=== PATIENT | female | born 1930 | race Caucasian/White ===

== ENCOUNTER 2018-03-26 23:13 | Inpatient (IN) | payer MEDICARE, OTHER ==
[2018-03-26] MEDS: SOD CHLORIDE 0.9% 500 ML IV (23:43)
[2018-03-27 00:50] LABS: ADD UMIC YES; UR ASCORBIC ACID NEGATIVE (NEGATIVE); UR BACTERIA MANY /HPF (NONE SEEN); UR BILIRUBIN (Dip) NEGATIVE (NEGATIVE); UR BLOOD (Dip) 1+ mg/dL (NEGATIVE); UR CLARITY CLOUDY (CLEAR); UR COLOR YELLOW (YELLOW); UR GLUCOSE (Dip) NEGATIVE (NEGATIVE); UR KETONES (Dip) NEGATIVE (NEGATIVE); UR LEUKOCYTE ESTERASE (Dip) 3+ Leu/ul (NEGATIVE); UR NITRITE (Dip) NEGATIVE (NEGATIVE); UR RBC 4 /HPF (0-5); UR SPECIFIC GRAVITY (Dip) 1.012 (1.003-1.030); UR SQUAMOUS EPITHELIAL CELL FEW /HPF (FEW); UR TOTAL PROTEIN (Dip) NEGATIVE (NEGATIVE); UR UROBILINOGEN (Dip) NEGATIVE (NEGATIVE); UR WBC 118 /HPF (0-5)
[2018-03-27] MEDS: CEFTRIAXONE 1 GM/50 ML (PMX) 50 ML IVPB ×2 (00:52→08:41)
[2018-03-27 00:54] LABS: AADO2 Arterial 24.6 mmHg (7.0-24.0); Allen Test ACCEPTAB; Arterial Base Excess 4.6 mmol/L (-3.0-3); Arterial Blood Gas Oxygen Sat 98.5 mmHG (95.0-100.0); Arterial COHb 0.6 % (0.0-3.0); Arterial Fraction of Oxyhgb 97.7 % (93.0-99.0); Arterial HCO3 29.8 mmol/L (22.0-26.0); Arterial MetHb 0.2 % (0.0-1.5); Arterial Total Hemglobin 12.6 g/dl (12.0-18.0); Arterial pCO2 46.9 mmhg (35-45); MODE NASAL CANNULA; Site Right Radial
[2018-03-27 00:55] LABS: ADD MAN DIFF? NO
[2018-03-27 01:01] LABS: WHITE BLOOD COUNT 6.5 10^3/ul (4.8-10.8)
[2018-03-27 01:01] LABS: ABNORMAL IP MESSAGE 1; BASOPHILS % 0.3 % (0.0-2.0); EOSINOPHILS # 0.3 10^3/ul (0.0-0.5); EOSINOPHILS % 4.3 % (0.0-7.0); HEMATOCRIT 38.1 % (37.0-47.0); LYMPHOCYTES # 0.6 10^3/ul (0.8-2.9); LYMPHOCYTES % 8.6 % (15.0-51.0); MEAN CORPUSCULAR HEMOGLOBIN 30.7 pg (29.0-33.0); MEAN CORPUSCULAR HGB CONC 31.5 g/dl (32.0-37.0); MEAN CORPUSCULAR VOLUME 97.4 fl (82.0-101.0); MEAN PLATELET VOLUME 10.6 fl (7.4-10.4); MONOCYTE # 0.9 10^3/ul (0.3-0.9); MONOCYTES % 13.3 % (0.0-11.0); NEUTROPHIL # 4.7 10^3/ul (1.6-7.5); NEUTROPHILS % 73.2 % (39.0-77.0); PLATELET COUNT 223 10^3/UL (140-415); RED BLOOD COUNT 3.91 10^6/ul (4.20-5.40); RED CELL DISTRIBUTION WIDTH 15.6 % (11.5-14.5)
[2018-03-27 01:03] LABS: POSITIVE DIFF @See below
[2018-03-27 01:20] LABS: INR 1.35; PROTIME 16.9 Sec (11.9-14.9); PT RATIO 1.3
[2018-03-27 01:28] LABS: ALANINE AMINOTRANSFERASE 23 IU/L (13-69); ALBUMIN 3.5 g/dl (3.3-4.9); ALBUMIN/GLOBULIN RATIO 1.16; ALKALINE PHOSPHATASE 53 IU/L (42-121); ANION GAP 11 (8-16); ASPARTATE AMINO TRANSFERASE 26 IU/L (15-46); BILIRUBIN,INDIRECT 0.3 mg/dl (0-1.1); BILIRUBIN,TOTAL 0.3 mg/dl (0.2-1.3); BLOOD UREA NITROGEN 44 mg/dl (7-20); CARBON DIOXIDE 35 mmol/L (21-31); CHLORIDE 98 mmol/L (97-110); CREATININE 1.15 mg/dl (0.44-1.00); GLUCOSE 81 mg/dl (70-220); LIPASE 54 U/L (23-300); POTASSIUM 4.9 mmol/L (3.5-5.1); SODIUM 139 mmol/L (135-144); TOTAL PROTEIN 6.5 g/dl (6.1-8.1)
[2018-03-27 01:38] LABS: B-TYPE NATRIURETIC PEPTIDE 1800 PG/ML (0-450)
[2018-03-27] MEDS: KETOROLAC 15 MG INJ IV (01:47)
[2018-03-27] MEDS ORDERED: LORAZEPAM 2 MG INJ IV (02:30)
[2018-03-27] MEDS: FUROSEMIDE 40 MG INJ IV (03:25)
[2018-03-27] MEDS ORDERED: ONDANSETRON 4 MG INJ IV ×2 (07:00→09:00)
[2018-03-27 07:45] LABS: ADD MAN DIFF? NO
[2018-03-27 07:49] LABS: BASOPHILS % 0.4 % (0.0-2.0); EOSINOPHILS # 0.3 10^3/ul (0.0-0.5); EOSINOPHILS % 5.5 % (0.0-7.0); HEMATOCRIT 33.7 % (37.0-47.0); HEMOGLOBIN 10.8 g/dl (12.0-16.0); LYMPHOCYTES # 0.7 10^3/ul (0.8-2.9); LYMPHOCYTES % 13.1 % (15.0-51.0); MEAN CORPUSCULAR VOLUME 96.8 fl (82.0-101.0); MEAN PLATELET VOLUME 10.4 fl (7.4-10.4); MONOCYTE # 0.8 10^3/ul (0.3-0.9); MONOCYTES % 15.6 % (0.0-11.0); NEUTROPHIL # 3.2 10^3/ul (1.6-7.5); NEUTROPHILS % 65.2 % (39.0-77.0); PLATELET COUNT 187 10^3/UL (140-415); RED BLOOD COUNT 3.48 10^6/ul (4.20-5.40); RED CELL DISTRIBUTION WIDTH 15.7 % (11.5-14.5)
[2018-03-27 08:13] LABS: ALANINE AMINOTRANSFERASE 26 IU/L (13-69); ALBUMIN/GLOBULIN RATIO 1.15; ALKALINE PHOSPHATASE 53 IU/L (42-121); ANION GAP 9 (8-16); ASPARTATE AMINO TRANSFERASE 22 IU/L (15-46); BILIRUBIN,INDIRECT 0.2 mg/dl (0-1.1); BILIRUBIN,TOTAL 0.2 mg/dl (0.2-1.3); BLOOD UREA NITROGEN 44 mg/dl (7-20); CALCIUM 8.7 mg/dl (8.4-10.2); CARBON DIOXIDE 35 mmol/L (21-31); CHLORIDE 100 mmol/L (97-110); CREATININE 1.13 mg/dl (0.44-1.00); GLUCOSE 88 mg/dl (70-220); MAGNESIUM 2.5 mg/dl (1.7-2.5); PHOSPHORUS 4.5 mg/dl (2.5-4.9); POTASSIUM 4.4 mmol/L (3.5-5.1); SODIUM 140 mmol/L (135-144); TOTAL PROTEIN 5.6 g/dl (6.1-8.1)
[2018-03-27] MEDS ORDERED: NACL 0.9% 3 ML SYG IV (09:00)
[2018-03-27] MEDS ORDERED: TRIMETHOPRIM/SULFAMETHOX (DS) TAB PO (09:30)
[2018-03-27] MEDS: FAMOTIDINE 20 MG TAB PO ×2 (11:07→20:28)
[2018-03-27] MEDS: HEPARIN 5,000 UNIT/0.5 ML VIAL SC ×2 (11:09→20:27)
[2018-03-27] MEDS: ALBUMIN HUMAN 25% 100 ML IV ×2 (11:15→12:36)
[2018-03-27] MEDS ORDERED: VANCOMYCIN IV PER PHARMACY XX (11:30)
[2018-03-27] MEDS ORDERED: MEROPENEM 1 GM/50ML(PMX) 50 ML IVPB (11:30)
[2018-03-27] MEDS: MEROPENEM 1 GM/50ML(PMX) 50 ML IVPB ×2 (14:16→20:28)
[2018-03-27] MEDS: VANCOMYCIN 1.5 GM in SOD CHLORIDE 0.9% 250 ML IVPB (15:14)
[2018-03-27] MEDS ORDERED: FUROSEMIDE 20 MG INJ IV (18:00)
[2018-03-28 05:20] LABS: ADD MAN DIFF? NO
[2018-03-28 05:36] LABS: WHITE BLOOD COUNT 3.7 10^3/ul (4.8-10.8)
[2018-03-28 05:36] LABS: ABNORMAL IP MESSAGE 1; BASOPHILS % 0.8 % (0.0-2.0); EOSINOPHILS # 0.2 10^3/ul (0.0-0.5); EOSINOPHILS % 5.9 % (0.0-7.0); HEMATOCRIT 32.1 % (37.0-47.0); HEMOGLOBIN 10.3 g/dl (12.0-16.0); LYMPHOCYTES # 0.4 10^3/ul (0.8-2.9); LYMPHOCYTES % 11.9 % (15.0-51.0); MEAN CORPUSCULAR HEMOGLOBIN 31.7 pg (29.0-33.0); MEAN CORPUSCULAR HGB CONC 32.1 g/dl (32.0-37.0); MEAN CORPUSCULAR VOLUME 98.8 fl (82.0-101.0); MEAN PLATELET VOLUME 11.2 fl (7.4-10.4); MONOCYTE # 0.5 10^3/ul (0.3-0.9); MONOCYTES % 12.1 % (0.0-11.0); NEUTROPHIL # 2.6 10^3/ul (1.6-7.5); PLATELET COUNT 172 10^3/UL (140-415); RED BLOOD COUNT 3.25 10^6/ul (4.20-5.40); RED CELL DISTRIBUTION WIDTH 15.7 % (11.5-14.5)
[2018-03-28 05:46] LABS: ALANINE AMINOTRANSFERASE 26 IU/L (13-69); ALBUMIN 3.4 g/dl (3.3-4.9); ALBUMIN/GLOBULIN RATIO 1.41; ALKALINE PHOSPHATASE 41 IU/L (42-121); ANION GAP 15 (8-16); ASPARTATE AMINO TRANSFERASE 24 IU/L (15-46); BILIRUBIN,INDIRECT 0.4 mg/dl (0-1.1); BILIRUBIN,TOTAL 0.4 mg/dl (0.2-1.3); BLOOD UREA NITROGEN 35 mg/dl (7-20); CARBON DIOXIDE 32 mmol/L (21-31); CHLORIDE 104 mmol/L (97-110); CHOL/HDL RATIO 2.9 RATIO; CHOLESTEROL 107 mg/dl (100-200); CREATININE 0.89 mg/dl (0.44-1.00); HDL CHOLESTEROL 36 mg/dl (33-92); LDL CHOLESTEROL,CALCULATED 57 mg/dl; MAGNESIUM 2.5 mg/dl (1.7-2.5); PHOSPHORUS 3.9 mg/dl (2.5-4.9); POTASSIUM 4.6 mmol/L (3.5-5.1); SODIUM 146 mmol/L (135-144); TOTAL PROTEIN 5.8 g/dl (6.1-8.1); TRIGLYCERIDES 69 mg/dl (0-149)
[2018-03-28 05:54] LABS: GLUCOSE 46 mg/dl (70-220)
[2018-03-28 05:57] LABS: FREE THYROXINE INDEX (Calc) 2.23 ug/ml (0.65-3.89); T4 (THYROXINE) 5.3 ug/dl (5.5-11.0)
[2018-03-28 06:07] LABS: POSITIVE DIFF @See below
[2018-03-28] MEDS: ACETAMINOPHEN 325 MG TAB PO ×2 (06:30→21:38)
[2018-03-28 08:09] LABS: HEMOGLOBIN A1C 5.8 % (0-5.9)
[2018-03-28] MEDS: MEROPENEM 1 GM/50ML(PMX) 50 ML IVPB ×2 (08:48→20:22)
[2018-03-28] MEDS: HEPARIN 5,000 UNIT/0.5 ML VIAL SC (08:50)
[2018-03-28] MEDS: FAMOTIDINE 20 MG TAB PO ×2 (08:50→20:22)
[2018-03-28] MEDS: HYDROCODONE/APAP (5/325) TAB PO (11:12)
[2018-03-28] MEDS: FUROSEMIDE 40 MG INJ IV ×2 (11:16→18:30)
[2018-03-28] MEDS: ALBUTEROL/IPRATROPIUM (NEB) 3 ML AMP HHN (14:51)
[2018-03-28] MEDS ORDERED: BISACODYL (EC) 5 MG TAB PO (15:00)
[2018-03-28] MEDS: VANCOMYCIN 750 MG in DEXTROSE 5% 150 ML IVPB (15:18)
[2018-03-28] MEDS: APIXABAN 5 MG TABLET PO (20:22)
[2018-03-28] MEDS: IBUPROFEN 600 MG TAB PO (22:14)
[2018-03-29] MEDS ORDERED: VANCOMYCIN 1 GM 250 ML IVPB (02:00)
[2018-03-29] MEDS: FUROSEMIDE 40 MG INJ IV ×2 (06:03→18:00)
[2018-03-29 06:57] LABS: ADD MAN DIFF? NO
[2018-03-29 07:06] LABS: WHITE BLOOD COUNT 4.7 10^3/ul (4.8-10.8)
[2018-03-29 07:06] LABS: BASOPHILS % 0.4 % (0.0-2.0); EOSINOPHILS # 0.2 10^3/ul (0.0-0.5); EOSINOPHILS % 5.1 % (0.0-7.0); HEMATOCRIT 34.6 % (37.0-47.0); HEMOGLOBIN 11.1 g/dl (12.0-16.0); LYMPHOCYTES # 0.6 10^3/ul (0.8-2.9); LYMPHOCYTES % 13.6 % (15.0-51.0); MEAN CORPUSCULAR HEMOGLOBIN 31.4 pg (29.0-33.0); MEAN CORPUSCULAR HGB CONC 32.1 g/dl (32.0-37.0); MEAN CORPUSCULAR VOLUME 97.7 fl (82.0-101.0); MEAN PLATELET VOLUME 10.8 fl (7.4-10.4); MONOCYTE # 0.7 10^3/ul (0.3-0.9); MONOCYTES % 13.8 % (0.0-11.0); NEUTROPHIL # 3.2 10^3/ul (1.6-7.5); NEUTROPHILS % 66.9 % (39.0-77.0); PLATELET COUNT 190 10^3/UL (140-415); RED BLOOD COUNT 3.54 10^6/ul (4.20-5.40); RED CELL DISTRIBUTION WIDTH 15.1 % (11.5-14.5)
[2018-03-29 07:38] LABS: ALANINE AMINOTRANSFERASE 25 IU/L (13-69); ALBUMIN 3.3 g/dl (3.3-4.9); ALBUMIN/GLOBULIN RATIO 1.22; ALKALINE PHOSPHATASE 50 IU/L (42-121); ANION GAP 12 (8-16); ASPARTATE AMINO TRANSFERASE 24 IU/L (15-46); BILIRUBIN,INDIRECT 0.4 mg/dl (0-1.1); BILIRUBIN,TOTAL 0.4 mg/dl (0.2-1.3); BLOOD UREA NITROGEN 31 mg/dl (7-20); CALCIUM 9.1 mg/dl (8.4-10.2); CARBON DIOXIDE 39 mmol/L (21-31); CHLORIDE 98 mmol/L (97-110); CREATININE 0.85 mg/dl (0.44-1.00); GLUCOSE 77 mg/dl (70-220); MAGNESIUM 2.1 mg/dl (1.7-2.5); POTASSIUM 4.1 mmol/L (3.5-5.1); SODIUM 145 mmol/L (135-144)
[2018-03-29] MEDS: ALBUTEROL/IPRATROPIUM (NEB) 3 ML AMP HHN ×3 (08:46→19:31)
[2018-03-29] MEDS: PAROXETINE 20 MG TAB PO (09:11)
[2018-03-29] MEDS: METOPROLOL (XL) 50 MG TAB PO (09:11)
[2018-03-29] MEDS: SPIRONOLACTONE 25 MG TAB PO (09:11)
[2018-03-29] MEDS: APIXABAN 5 MG TABLET PO ×2 (09:12→21:02)
[2018-03-29] MEDS: FAMOTIDINE 20 MG TAB PO ×2 (09:12→21:02)
[2018-03-29] MEDS: MEROPENEM 1 GM/50ML(PMX) 50 ML IVPB (09:12)
[2018-03-29] MEDS: GUAIFENESIN 20 MG/ML 5ML CUP PO (09:27)
[2018-03-29] MEDS: ACETAMINOPHEN 325 MG TAB PO ×2 (10:55→21:02)
[2018-03-29] MEDS: IBUPROFEN 600 MG TAB PO ×2 (13:44→23:18)
[2018-03-29] MEDS: CEFEPIME 2GM/50 ML IVPB (16:46)
[2018-03-30] MEDS: ALBUTEROL/IPRATROPIUM (NEB) 3 ML AMP HHN ×4 (02:05→20:09)
[2018-03-30] MEDS: GUAIFENESIN 20 MG/ML 5ML CUP PO ×3 (02:31→18:18)
[2018-03-30] MEDS: ACETAMINOPHEN 325 MG TAB PO ×2 (03:01→16:07)
[2018-03-30] MEDS: FUROSEMIDE 40 MG INJ IV ×2 (06:00→18:18)
[2018-03-30] MEDS: KETOROLAC 30 MG INJ IV (06:15)
[2018-03-30 09:44] LABS: ANION GAP 13 (8-16); BLOOD UREA NITROGEN 31 mg/dl (7-20); CARBON DIOXIDE 36 mmol/L (21-31); CHLORIDE 96 mmol/L (97-110); GLUCOSE 88 mg/dl (70-220); POTASSIUM 4.3 mmol/L (3.5-5.1); SODIUM 141 mmol/L (135-144)
[2018-03-30] MEDS: APIXABAN 5 MG TABLET PO ×2 (10:00→21:29)
[2018-03-30] MEDS: PAROXETINE 20 MG TAB PO (10:01)
[2018-03-30] MEDS: FAMOTIDINE 20 MG TAB PO ×2 (10:01→21:29)
[2018-03-30] MEDS: SPIRONOLACTONE 25 MG TAB PO (10:05)
[2018-03-30] MEDS: METOPROLOL (XL) 50 MG TAB PO (10:43)
[2018-03-30] MEDS: IBUPROFEN 600 MG TAB PO ×2 (13:40→21:43)
[2018-03-30] MEDS: CEFEPIME 2GM/50 ML IVPB (16:08)
[2018-03-31] MEDS: ACETAMINOPHEN 325 MG TAB PO ×2 (01:20→11:29)
[2018-03-31] MEDS: ALBUTEROL/IPRATROPIUM (NEB) 3 ML AMP HHN ×4 (02:50→20:59)
[2018-03-31] MEDS: GUAIFENESIN 20 MG/ML 5ML CUP PO ×3 (03:23→20:14)
[2018-03-31] MEDS: morphine 2 MG INJ IV (04:54)
[2018-03-31] MEDS: FUROSEMIDE 40 MG INJ IV (05:49)
[2018-03-31] MEDS: IBUPROFEN 600 MG TAB PO ×2 (06:40→18:00)
[2018-03-31] MEDS: PAROXETINE 20 MG TAB PO (08:34)
[2018-03-31] MEDS: SPIRONOLACTONE 25 MG TAB PO (08:34)
[2018-03-31] MEDS: FAMOTIDINE 20 MG TAB PO ×2 (08:35→20:15)
[2018-03-31] MEDS: APIXABAN 5 MG TABLET PO ×2 (08:35→20:14)
[2018-03-31] MEDS: METOPROLOL (XL) 50 MG TAB PO (08:35)
[2018-03-31] MEDS: FUROSEMIDE 40 MG TAB PO (17:16)
[2018-04-01] MEDS: ALBUTEROL/IPRATROPIUM (NEB) 3 ML AMP HHN ×4 (01:45→20:51)
[2018-04-01] MEDS: IBUPROFEN 600 MG TAB PO ×2 (02:14→14:23)
[2018-04-01] MEDS: ACETAMINOPHEN 325 MG TAB PO ×3 (05:27→20:43)
[2018-04-01] MEDS: FUROSEMIDE 40 MG TAB PO ×2 (05:36→17:20)
[2018-04-01] MEDS: FAMOTIDINE 20 MG TAB PO ×2 (08:37→20:43)
[2018-04-01] MEDS: PAROXETINE 20 MG TAB PO (08:37)
[2018-04-01] MEDS: SPIRONOLACTONE 25 MG TAB PO (08:38)
[2018-04-01] MEDS: APIXABAN 5 MG TABLET PO ×2 (08:38→20:43)
[2018-04-01] MEDS: METOPROLOL (XL) 50 MG TAB PO (09:00)
[2018-04-01] MEDS: GUAIFENESIN 20 MG/ML 5ML CUP PO ×2 (09:57→17:23)
[2018-04-02] MEDS: ALBUTEROL/IPRATROPIUM (NEB) 3 ML AMP HHN ×4 (00:20→19:51)
[2018-04-02] MEDS: IBUPROFEN 600 MG TAB PO ×2 (01:59→20:25)
[2018-04-02] MEDS: HYDROCODONE/APAP (5/325) TAB PO ×3 (03:01→23:33)
[2018-04-02] MEDS: ACETAMINOPHEN 325 MG TAB PO (04:03)
[2018-04-02] MEDS: FUROSEMIDE 40 MG TAB PO ×2 (06:10→17:39)
[2018-04-02] MEDS: GUAIFENESIN 20 MG/ML 5ML CUP PO ×2 (08:15→20:26)
[2018-04-02] MEDS: PAROXETINE 20 MG TAB PO (08:15)
[2018-04-02] MEDS: APIXABAN 5 MG TABLET PO ×2 (08:15→20:17)
[2018-04-02] MEDS: METOPROLOL (XL) 50 MG TAB PO (08:16)
[2018-04-02] MEDS: SPIRONOLACTONE 25 MG TAB PO (08:16)
[2018-04-02] MEDS: FAMOTIDINE 20 MG TAB PO ×2 (08:16→20:17)
[2018-04-02] MEDS: HYDROmorphONE 0.5 MG/0.5 ML SYG IV (10:20)
[2018-04-03] MEDS: ALBUTEROL/IPRATROPIUM (NEB) 3 ML AMP HHN ×3 (01:00→13:34)
[2018-04-03] MEDS: FUROSEMIDE 40 MG TAB PO ×2 (05:12→17:11)
[2018-04-03] MEDS: HYDROCODONE/APAP (5/325) TAB PO ×2 (05:47→18:20)
[2018-04-03] MEDS: GUAIFENESIN 20 MG/ML 5ML CUP PO ×2 (07:46→11:51)
[2018-04-03] MEDS: APIXABAN 5 MG TABLET PO (08:54)
[2018-04-03] MEDS: METOPROLOL (XL) 50 MG TAB PO (08:54)
[2018-04-03] MEDS: SPIRONOLACTONE 25 MG TAB PO (08:54)
[2018-04-03] MEDS: FAMOTIDINE 20 MG TAB PO (08:54)
[2018-04-03] MEDS: PAROXETINE 20 MG TAB PO (08:54)
[2018-04-03] MEDS: ACETAMINOPHEN 325 MG TAB PO (10:37)
== END 2018-04-03 18:59 | DRG 291 ==
LOC: E/R 23:13 → PP2 03-27 01:17
PROVIDERS: Internal Medicine
PROC: 4A033R1 Measurement of Arterial Saturation, Peripheral, Percutaneous Approach (ICD-10-PCS; principal; 2018-03-27)
DX: I11.0 Hypertensive heart disease with heart failure (principal); J96.01 Acute respiratory failure with hypoxia; N39.0 Urinary tract infection, site not specified; L03.115 Cellulitis of right lower limb; E87.3 Alkalosis; I50.33 Acute on chronic diastolic (congestive) heart failure; B96.5 Pseudomonas (aeruginosa) (mallei) (pseudomallei) as the cause of diseases classified elsewhere; I48.2 Chronic atrial fibrillation; F03.90 Unspecified dementia, unspecified severity, without behavioral disturbance, psychotic disturbance, mood disturbance, and anxiety; M17.0 Bilateral primary osteoarthritis of knee
CPT/HCPCS: 36415; 36600; 71045; 73562-50; 73610-RT; 80048; 80053; 80061; 81001; 82803; 82962; 83036; 83690; 83735; 83880; 84100; 84436; 84479; 84484; 85025; 85610; 85730; 87086; 92526; 92610; 93005; 93306; 93970; 94640; 94664; 96374; 96375; 99285-25